=== PATIENT | female | born 1960 | race Caucasian/White ===

== ENCOUNTER → 2017-04-03 | Outpatient (CLI) | payer BC ==
--- NOTE | ~2017-04-03 | CT4 ---
[facility] A Service of [facility] & [facility] RADIOLOGY TEXT RESULTS PATIENT: ENMANUEL WOODARD LOCATION: [facility] : 62 UNIT #: [id number] AGE: [address]: Mary Jane Richter APRN SEX: F ORDER DR: [id number] [facility] [address] [place], [place] [address] [id number] O MR#: [id number] Acc #: [id number] NAME: ENMANUEL WOODARD : 1960 SEX: F STUDY DATE/TIME: 04/03/2017 09:50 UNIT: [facility] ROOM: STUDY DESCRIPTION: CT Abd and Pelv Wo Cont Attending Physician: Mary Jane Richter A.P.R.N. Referring Physician: Mary Jane Richter A.P.R.N. Ordering Physician: Mary Jane Richter A.P.R.N. Primary Care Physician: Mary Jane Richter A.P.R.N. MEDICAL IMAGING REPORT This report is preliminary unless electronic signature is present EXAM CT abdomen and pelvis without contrast 04/03/2017 0950 hours HISTORY 56-year-old woman with left and right mid abdominal pain for 1 week. Rebound tenderness on today's exam. Suspected diverticulitis. COMPARISON None. TECHNIQUE Helical noncontrasted images were obtained from the lung bases through the pubic symphysis without oral or intravenous contrast. Sagittal and coronal reconstructions were performed. Total exam DLP 1180 mGy-cm. This CT examination was performed with one or more of the following radiation dose reduction techniques: automatic exposure control, adjustment of mA and/or kV according to patient size, and iterative reconstruction. FINDINGS Images through the lung bases are clear. There are no effusions. Images through the abdomen without contrast demonstrate a normal appearance to the liver, spleen, pancreas and bile ducts. There are clips consistent with prior cholecystectomy. The adrenal glands are normal. The kidneys demonstrate no mass, stone or obstruction. There is no ureterectasis or ureteral calculus seen. The stomach is contracted and unopacified but appears normal. There is no small bowel distension or small bowel wall thickening. The terminal ileum and appendix are normal. The colon demonstrates colonic diverticula particularly in the descending colon and sigmoid colon without definite wall thickening or pericolonic stranding. [facility]. [facility] A Service of [facility] & [facility] RADIOLOGY TEXT RESULTS PATIENT: ENMANUEL WOODARD LOCATION: [facility] : 62 UNIT #: [id number] AGE: [address]: Mary Jane Richter APRN SEX: F ORDER DR: CT pelvis demonstrates normal appearance to the uterus and left adnexa. There is a right-sided cyst associated with the right ovary measuring 2.8 cm likely benign. There is no pelvic free fluid. There is a small fat density periumbilical hernia. There is no bowel involvement. No inguinal hernia. IMPRESSION 1. Diverticulosis of the descending colon and sigmoid colon without CT evidence of diverticulitis. 2. Normal appendix. 3. Cholecystectomy change with no evidence of bile duct dilatation. Normal pancreas. 4. No renal or ureteral calculi. STAT * RESULT Dictated by... Marisela Rosales M.D. THIS IS AN ELECTRONICALLY VERIFIED REPORT Marisela Rosales M.D. at 04/03/2017 2:31 PM ANDERSON/gama TD: 04/03/2017 10:20 JOB #: [id number] MEDICAL IMAGING REPORT Page 1 of 1 COPY
== END | disposition home or self-care (01) ==
LOC: CCAT 08:20
DX: R10.9 Unspecified abdominal pain (principal); K57.30 Diverticulosis of large intestine without perforation or abscess without bleeding; Z90.49 Acquired absence of other specified parts of digestive tract
CPT/HCPCS: 74176